=== PATIENT | female | born 1975 | race Caucasian/White ===

== ENCOUNTER 2017-12-25 10:36 | Emergency (ER) | payer OTHER ==
[~2017-12-25] VITALS: Ht 157.5 cm; Wt 82.0 kg
[2017-12-25 10:42] VITALS: BP 112/72; PULSE 103; RESP 18; TEMP 98.9; O2SAT 100
[2017-12-25] MEDS ORDERED: LIOT25 PO (10:51)
[2017-12-25] MEDS ORDERED: LEVO88TA2 PO (10:51)
[2017-12-25] MEDS ORDERED: SODIUM CHLOR 0.9% 1000 ML INJ 1,000 ML IV SCH (11:06)
[2017-12-25] MEDS ORDERED: SODIUM CHLORIDE 0.9% FLUSH 10 ML FLUSH IV FLUSH PRN (11:15)
[2017-12-25] MEDS ORDERED: ONDANSETRON HCL 4 MG/2 ML VIAL IVP ONE (11:15)
--- NOTE | 2017-12-25 11:20 | PD ---
HPI Chief Complaint: GI Complaint Time Seen by Provider: 10:57 Travel History International Travel<30 days: No Contact w/Intl Traveler<30days: No Traveled to known affect area: No History of Present Illness HPI The patient was seen and examined in the presence of the nurse. She complains of nausea and vomiting. Started this morning. No diarrhea or abdominal pain or fever. She is a very rare drinker but had a binge yesterday evening of 8 alcoholic drinks. Symptoms are moderately severe. No alleviating factors. Symptoms exacerbated by heavy drinking last night. No ill contacts PFSH Past Medical History Immunizations Current: Yes Thyroid Disease: Yes Influenza Vaccination: No ?: Not LMP: APPROX 1 MONTH AGO-STATES INFERTILE Past Surgical History Surgical History: No Previous Surgery Social History Alcohol Use: Yes (RARE) Tobacco Use: No Substance Use: No Allergies-Medications (Allergen,Severity, Reaction): Coded Allergies: No Known Allergies (Unverified , 12/25/17) Reported Meds & Prescriptions Reported Meds & Active Scripts Active Phenergan (Promethazine HCl) 25 Mg Tablet 25 Mg PO Q6H PRN Reported Levothyroxine (Levothyroxine Sodium) 88 Mcg Tab 88 Mcg PO DAILY Cytomel (Liothyronine Sodium) 25 Mcg Tab 25 Mcg PO HS Review of Systems General / Constitutional: No: Fever Eyes: No: Visual changes HENT: No: Headaches Cardiovascular: No: Chest Pain or Discomfort Respiratory: No: Shortness of Breath Gastrointestinal: Positive: Nausea, Vomiting, No: Abdominal Pain Genitourinary: No: Dysuria Musculoskeletal: No: Pain Skin: No Rash Neurologic: No: Weakness Psychiatric: No: Depression Endocrine: No: Polydipsia Hematologic/Lymphatic: No: Easy Bruising Physical Exam Narrative GENERAL: Well-nourished, well-developed patient in no apparent distress. SKIN: Focused skin assessment reveals no rash and nodules. Skin is Warm and dry. HEAD: Atraumatic. Normocephalic. EYES: Pupils equal and round. No scleral icterus. No injection or drainage. ENT: No nasal bleeding or discharge. Mucous membranes pink and moist. NECK: Trachea midline. No JVD. CARDIOVASCULAR: Regular rate and rhythm. No murmur appreciated. RESPIRATORY: No accessory muscle use. Clear to auscultation. Breath sounds equal bilaterally. GASTROINTESTINAL: Abdomen soft, non-tender, nondistended. Hepatic and splenic margins not palpable. MUSCULOSKELETAL: No obvious deformities. No clubbing. No cyanosis. No edema. NEUROLOGICAL: Awake and alert. No obvious cranial nerve deficits. Motor grossly within normal limits. Normal speech. PSYCHIATRIC: Appropriate mood and affect; insight and judgment normal. Data Data Last Documented VS Vital Signs Date Time Temp Pulse Resp B/P (MAP) Pulse Ox O2 Delivery O2 Flow Rate FiO2 12/25/17 11:55 97 16 131/68 (89) 100 Room Air 12/25/17 10:42 98.9 Orders Orders Beta Hcg (Quant/Titer) (12/25/17 11:06) Complete Blood Count With Diff (12/25/17 11:06) Comprehensive Metabolic Panel (12/25/17 11:06) Iv Access Insert/Monitor (12/25/17 11:06) Ecg Monitoring (12/25/17 11:06) NPO (12/25/17 11:06) Ondansetron Inj (Zofran Inj) (12/25/17 11:15) Sodium Chlor 0.9% 1000 Ml Inj (Ns 1000 M (12/25/17 11:06) Sodium Chloride 0.9% Flush (Ns Flush) (12/25/17 11:15) Labs Laboratory Tests Test 12/25/17 11:05 White Blood Count 8.0 TH/MM3 Red Blood Count 4.38 MIL/MM3 Hemoglobin 12.6 GM/DL Hematocrit 38.0 % Mean Corpuscular Volume 86.8 FL Mean Corpuscular Hemoglobin 28.8 PG Mean Corpuscular Hemoglobin Concent 33.2 % Red Cell Distribution Width 12.4 % Platelet Count 258 TH/MM3 Mean Platelet Volume 7.7 FL Neutrophils (%) (Auto) 81.7 % Lymphocytes (%) (Auto) 14.6 % Monocytes (%) (Auto) 3.0 % Eosinophils (%) (Auto) 0.1 % Basophils (%) (Auto) 0.6 % Neutrophils # (Auto) 6.6 TH/MM3 Lymphocytes # (Auto) 1.2 TH/MM3 Monocytes # (Auto) 0.2 TH/MM3 Eosinophils # (Auto) 0.0 TH/MM3 Basophils # (Auto) 0.0 TH/MM3 CBC Comment DIFF FINAL Differential Comment Blood Urea Nitrogen 12 MG/DL Creatinine 0.83 MG/DL Random Glucose 103 MG/DL Total Protein 7.4 GM/DL Albumin 3.6 GM/DL Calcium Level 8.2 MG/DL Alkaline Phosphatase 70 U/L Aspartate Amino Transf (AST/SGOT) 16 U/L Alanine Aminotransferase (ALT/SGPT) 27 U/L Total Bilirubin 0.3 MG/DL Sodium Level 141 MEQ/L Potassium Level 4.0 MEQ/L Chloride Level 110 MEQ/L Carbon Dioxide Level 20.7 MEQ/L Anion Gap 10 MEQ/L Estimat Glomerular Filtration Rate 76 ML/MIN Human Chorionic Gonadotropin, Quant LESS THAN 1 MIU/ML MDM Medical Decision Making Medical Screen Exam Complete: Yes Emergency Medical Condition: Yes Medical Record Reviewed: Yes Differential Diagnosis Alcohol poisoning, dehydration, gastroenteritis Narrative Course I have reviewed the patient's electronic medical record. IV placed She received 2 L normal saline IV She received 2 separate doses of Zofran CBC is normal Metabolic profile is normal Beta hCG is negative Patient has normal vital signs and is well-hydrated now Has soft benign nontender abdomen She is very anxious I think she is stable for outpatient follow-up I wrote some Phenergan I have recommended clear liquids for 24 hours, then gradually advance as tolerated. Diagnosis Primary Impression: Nausea and vomiting Qualified Codes: R11.2 - Nausea with vomiting, unspecified Additional Impressions: Complaint of debility and malaise Generalized weakness Additional Instructions: The patient was warned about potential sedation for the medications they will receive on prescription. I have recommended clear liquids for 24 hours, then gradually advance as tolerated. The patient was advised to follow up with their physician and return if they worsen. Med/Other Pt SpecificInfo: Prescription(s) given Scripts Promethazine (Phenergan) 25 Mg Tablet 25 MG PO Q6H Y for NAUSEA OR VOMITING, #12 TAB 0 Refills Prov: Benjamin Caro MD 12/25/17 Disposition: DISCHARGE HOME Condition: Stable Benjamin Caro MD Dec 25, 2017 11:20
[2017-12-25 11:34] LABS: AUTOMATED NEUTROPHIL # 6.6 TH/MM3 (1.8-7.7); BASOPHIL % 0.6 % (0.0-2.0); EOSINOPHIL % 0.1 % (0.0-4.0); HEMOGLOBIN 12.6 GM/DL (11.6-15.3); LYMPH % 14.6 % (9.0-44.0); LYMPHOCYTE # 1.2 TH/MM3 (1.0-4.8); MEAN CELL VOLUME 86.8 FL (80.0-100.0); MEAN CORPUSCULAR HEMOGLOBIN 28.8 PG (27.0-34.0); MEAN CORPUSCULAR HGB CONC 33.2 % (32.0-36.0); MEAN PLATELET VOLUME 7.7 FL (7.0-11.0); MONOCYTE # 0.2 TH/MM3 (0-0.9); NEUT % 81.7 % (16.0-70.0); PLATELET COUNT 258 TH/MM3 (150-450); RED BLOOD COUNT 4.38 MIL/MM3 (4.00-5.30); RED CELL DISTRIBUTION WIDTH 12.4 % (11.6-17.2)
[2017-12-25 11:45] LABS: CHLORIDE 110 MEQ/L (98-107); SODIUM (NA) 141 MEQ/L (136-145)
[2017-12-25 11:50] LABS: CALCIUM 8.2 MG/DL (8.5-10.1); GLUCOSE,RANDOM 103 MG/DL (74-106)
[2017-12-25 11:51] LABS: ALBUMIN 3.6 GM/DL (3.4-5.0); BICARBONATE 20.7 MEQ/L (21.0-32.0); BLOOD UREA NITROGEN 12 MG/DL (7-18)
[2017-12-25 11:54] LABS: ALT (GPT) 27 U/L (10-53); AST (GOT) 16 U/L (15-37); CREATININE 0.83 MG/DL (0.50-1.00); GLOMERULAR FILTRATION RATE 76 ML/MIN (>89)
[2017-12-25 11:55] VITALS: BP 131/68; PULSE 97; RESP 16; O2SAT 100
[2017-12-25 11:55] LABS: TOTAL BILIRUBIN ADULT 0.3 MG/DL (0.2-1.0)
[2017-12-25 11:56] LABS: ALKALINE PHOSPHATASE 70 U/L (45-117); TOTAL PROTEIN 7.4 GM/DL (6.4-8.2)
[2017-12-25] MEDS ORDERED: PROM25TA10 PO (12:17)
[2017-12-25] MEDS ORDERED: PROMETHAZINE INJ 25 MG/ML VIAL IM ONE (12:45)
== END 2017-12-25 12:43 | disposition home or self-care (01) ==
LOC: PHED 10:36
DX: R11.2 Nausea with vomiting, unspecified (principal); R53.81 Other malaise; R53.1 Weakness; E07.9 Disorder of thyroid, unspecified; Z79.899 Other long term (current) drug therapy
CPT/HCPCS: 80053; 84702; 85025; 96361; 96374; 99284; J2405; J7030